=== PATIENT | female | born 2000 | race Caucasian/White ===

== ENCOUNTER 2021-01-06 21:10 | Inpatient (IN) | payer MEDICAID, OTHER ==
[~2021-01-06] VITALS: Ht 154.9 cm; Wt 44.6 kg
[2021-01-06 22:26] LABS: BASOPHILS % (AUTO) 0.4 % (0.0-2.0); EOSINOPHILS % (AUTO) 0.3 % (1.0-6.0); HEMATOCRIT 39.3 % (36-46); HEMOGLOBIN 13.2 g/dL (12.0-16.0); LYMPHOCYTES # (AUTO) 1.9 K/uL (1.0-4.8); LYMPHOCYTES % (AUTO) 24.3 % (22.0-44.0); MEAN CORPUSCULAR HEMOGLOBIN 29.6 pg (26.0-34.0); MEAN CORPUSCULAR HGB CONC 33.5 G/dL (31.0-37.0); MEAN CORPUSCULAR VOLUME 88 fL (80-100); MONOCYTES # (AUTO) 0.7 K/uL (0.1-1.0); MONOCYTES % (AUTO) 8.8 % (2.0-9.0); NEUTROPHILS # (AUTO) 5.3 K/uL (1.8-7.7); NEUTROPHILS % (AUTO) 66.2 % (40.0-70.0); PLATELET COUNT (AUTO) 195 K/uL (150-450); RED BLOOD CELL COUNT(AUTO) 4.45 MIL/uL (4.00-5.20); RED CELL DISTRIBUTION WIDTH 13.5 % (11.5-14.5)
[2021-01-06 22:33] LABS: CALCIUM, TOTAL 8.9 mg/dL (8.8-10.5); CARBON DIOXIDE 21 mmol/L (22-29); GLOMERULAR FILTR. RATE CALC > 60 mL/min (>60); GLUCOSE,RANDOM 87 mg/dL (70-110); UREA NITROGEN, BLOOD 8 mg/dL (7-18)
[2021-01-06 22:44] LABS: ALANINE AMINOTRANSFERASE 23 U/L (12-78); ALBUMIN 3.9 g/dL (3.4-5.0); ALKALINE PHOSPHATASE 77 U/L (46-116); ANION GAP 14 mmol/L (8-16); ASPARTATE AMINOTRANSFERASE 24 U/L (15-37); BILIRUBIN,TOTAL 0.6 mg/dL (0.1-1.0); CHLORIDE 107 mmol/L (98-107); HCG,QUANTITATIVE < 1 mIU/mL (0-6); POTASSIUM 3.3 mmol/L (3.5-5.1); SODIUM SERUM 142 mmol/L (136-145); TOTAL PROTEIN, SERUM 7.6 g/dL (6.4-8.2)
[2021-01-06] MEDS ORDERED: ACETAMINOPHEN 500 MG TABLET PO ONE (22:45)
[2021-01-06 23:23] LABS: COVID AG,FIA SOURCE NASOPHARYNGEAL
[2021-01-06] MEDS ORDERED: ZOLPIDEM TARTRATE 10 MG TABLET PO PRN (23:30)
[2021-01-06] MEDS ORDERED: POTASSIUM CHLORIDE 20 MEQ ER TABLET PO ONE (23:30)
[2021-01-06] MEDS ORDERED: OLANZapine 5 MG RAPDIS TABLET PO PRN (23:30)
[2021-01-07] MEDS ORDERED: IBUPROFEN 600 MG TABLET PO ONE (01:00)
[2021-01-07 01:29] LABS: APPEARANCE,URINE CLOUDY (CLEAR); BILIRUBIN,URINE NEGATIVE (NEGATIVE); GLUCOSE, URINE (UA) NEGATIVE (NEGATIVE); KETONES,URINE TRACE mg/dL (NEGATIVE); LEUKOCYTE ESTERASE ,URINE NEGATIVE (NEGATIVE); NITRATE,URINE NEGATIVE (NEGATIVE); OCCULT BLOOD,URINE NEGATIVE (NEGATIVE); PH,URINE 5.5 (5.0-8.0); PROTEIN,URINE NEGATIVE (NEGATIVE); UROBILINOGEN,URINE 0.2 mg/dL (<=1.0)
[2021-01-07 01:31] LABS: AMPHET/METH SCREEN,URINE NEGATIVE (NEGATIVE); BARBITURATE SCREEN, URINE NEGATIVE (NEGATIVE); BENZODIAZEPINES SCREEN,URINE NEGATIVE (NEGATIVE); CANNABINOID SCREEN,URINE POSITIVE (NEGATIVE); COCAINE SCREEN,URINE NEGATIVE (NEGATIVE); METHADONE SCREEN, URINE NEGATIVE (NEGATIVE); OPIATE SCREEN,URINE NEGATIVE (NEGATIVE)
[2021-01-07 01:34] LABS: PHENCYCLIDINE SCREEN,URINE NEGATIVE (NEGATIVE)
[2021-01-07 01:44] LABS: AMORPHOUS SEDIMENT,UR Few /LPF (None Seen); BACTERIA,URINE Few /HPF (None Seen); MUCUS,URINE Few LPF (None Seen); RBC,URINE 0-2 /HPF (0-2); SQUAMOUS EPITHELIAL CELL,UR Few /LPF (None Seen); WBC,URINE 0-2 /HPF (0-5)
[2021-01-07 03:05] LABS: CHOL/HDL RATIO 3.2 (3.9-5.7); CHOLESTEROL 145 mg/dL (131-200); HDL CHOLESTEROL 45 mg/dL (40-60); LDL CHOL (CALC.) 80 mg/dL (0-130); TRIGLYCERIDES 101 mg/dL (15-150)
[2021-01-07 04:22] VITALS: BP 122/69
[2021-01-07] MEDS: LORazepam 2 MG TABLET PO PRN (04:24)
[2021-01-07 08:16] VITALS: BP 110/69
[2021-01-07] MEDS ORDERED: MAGNESIUM HYDROXIDE SUSPENSION 30 ML UDCUP PO PRN (11:00)
[2021-01-07] MEDS ORDERED: OLANZapine 5 MG RAPDIS TABLET PO PRN (11:00)
[2021-01-07] MEDS ORDERED: TUBERCULIN, PURIFIED PROTEIN DERIVATIVE 5 TU/0.1 ML SYRINGE ID ONE (11:00)
[2021-01-07] MEDS ORDERED: HydrOXYzine PAMOATE 50 MG CAPSULE PO PRN (11:00)
[2021-01-07] MEDS ORDERED: GuaiFENesin/D-METHORPHAN [SUGAR-FREE] 200-20MG/10 ML SYRUP UDCUP PO PRN (11:00)
[2021-01-07] MEDS ORDERED: ZOLPIDEM TARTRATE 10 MG TABLET PO PRN (11:00)
[2021-01-07] MEDS ORDERED: LOPERAMIDE HCL 2 MG CAPSULE PO PRN (11:00)
[2021-01-07] MEDS ORDERED: PROMETHAZINE HCL 25 MG TABLET PO PRN (11:00)
[2021-01-07] MEDS ORDERED: LORazepam 2 MG TABLET PO PRN (11:00)
[2021-01-07] MEDS ORDERED: MAG HYDROX/AL HYDROX/SIMETH ES 30 ML SUSPENSION UDCUP PO PRN (11:00)
[2021-01-07] MEDS: ACETAMINOPHEN 325 MG TABLET PO PRN (12:50)
[2021-01-07] MEDS ORDERED: LURASIDONE HCL 20 MG TABLET PO PRN (15:30)
[2021-01-07 16:28] VITALS: BP 110/78
[2021-01-07] MEDS: LURASIDONE HCL 20 MG TABLET PO SCH (17:50)
[2021-01-07] MEDS: THIAMINE 100 MG TABLET PO SCH (17:50)
[2021-01-07] MEDS ORDERED: OLANZapine 5 MG RAPDIS TABLET PO SCH (21:00)
[2021-01-07] MEDS: MELATONIN 5 MG TABLET PO SCH (21:18)
[2021-01-08] MEDS ORDERED: POTASSIUM CHLORIDE 20 MEQ ER TABLET PO ONE
[2021-01-08 01:30] VITALS: BP 104/63
[2021-01-08 08:43] VITALS: BP 118/72
[2021-01-08] MEDS ORDERED: FLUoxetine HCL 20 MG CAPSULE PO SCH (09:00)
[2021-01-08] MEDS: OMEGA-3/DHA/EPA/FISH OIL 1,000 MG CAPSULE PO SCH (09:06)
[2021-01-08] MEDS: NALTREXONE HCL 50 MG TABLET PO SCH (09:06)
[2021-01-08] MEDS: THIAMINE 100 MG TABLET PO SCH ×2 (09:06→16:59)
[2021-01-08] MEDS: FOLIC ACID 1 MG TABLET PO SCH (09:07)
[2021-01-08] MEDS: MULTIVITAMINS WITH MINERALS, THERAPEUTIC TABLET PO SCH (09:07)
[2021-01-08] MEDS: LORazepam 2 MG TABLET PO PRN ×2 (09:07→13:15)
[2021-01-08] MEDS: ACETAMINOPHEN 325 MG TABLET PO PRN (09:08)
[2021-01-08 09:24] LABS: HEMOGLOBIN A1C 5.1 % (3.8-5.6)
[2021-01-08 10:35] LABS: ANION GAP 8 mmol/L (8-16); CALCIUM, TOTAL 9.2 mg/dL (8.8-10.5); CARBON DIOXIDE 25 mmol/L (22-29); CHLORIDE 105 mmol/L (98-107); CHOL/HDL RATIO 2.9 (3.9-5.7); CHOLESTEROL 145 mg/dL (131-200); CREATININE 0.72 mg/dL (0.60-1.30); FREE T4 (FREE THYROXINE) 1.29 ng/dL (0.76-1.46); GLOMERULAR FILTR. RATE CALC > 60 mL/min (>60); GLUCOSE,RANDOM 75 mg/dL (70-110); HDL CHOLESTEROL 50 mg/dL (40-60); LDL CHOL (CALC.) 80 mg/dL (0-130); POTASSIUM 3.7 mmol/L (3.5-5.1); SODIUM SERUM 138 mmol/L (136-145); THYROID STIMULATING HORMONE 1.23 uIU/mL (0.36-3.74); TRIGLYCERIDES 76 mg/dL (15-150); UREA NITROGEN, BLOOD 10 mg/dL (7-18)
[2021-01-08 16:35] VITALS: BP 110/83
[2021-01-08] MEDS: LURASIDONE HCL 20 MG TABLET PO SCH (16:59)
[2021-01-08] MEDS ORDERED: MELA5TAB3 PO (17:16)
[2021-01-08] MEDS ORDERED: NALT50TA PO (17:16)
[2021-01-08] MEDS ORDERED: OMEG-135 PO (17:16)
[2021-01-08] MEDS ORDERED: LURA20TA PO (17:16)
[2021-01-08] MEDS: MELATONIN 5 MG TABLET PO SCH (20:16)
[2021-01-09 02:10] VITALS: BP 116/70
[2021-01-09 03:42] VITALS: BP 114/65
[2021-01-09] MEDS: ACETAMINOPHEN 325 MG TABLET PO PRN (03:52)
[2021-01-09 08:41] VITALS: BP 128/61
[2021-01-09] MEDS: NALTREXONE HCL 50 MG TABLET PO SCH (09:00)
[2021-01-09] MEDS: THIAMINE 100 MG TABLET PO SCH (09:00)
[2021-01-09] MEDS: FOLIC ACID 1 MG TABLET PO SCH (09:00)
[2021-01-09] MEDS: OMEGA-3/DHA/EPA/FISH OIL 1,000 MG CAPSULE PO SCH (09:00)
[2021-01-09] MEDS: MULTIVITAMINS WITH MINERALS, THERAPEUTIC TABLET PO SCH (09:00)
[2021-01-09] MEDS ORDERED: LURASIDONE HCL 40 MG TABLET PO SCH (17:00)
== END 2021-01-09 09:30 | disposition home or self-care (01) | DRG 753 ==
LOC: EMS 21:13 → B2S 23:30
PROVIDERS: ADMIT Psychiatry & Neurology Psychiatry; ATTEND Psychiatry & Neurology Psychiatry
DX: F31.9 Bipolar disorder, unspecified (principal); R45.851 Suicidal ideations; G43.909 Migraine, unspecified, not intractable, without status migrainosus; D64.9 Anemia, unspecified; F41.9 Anxiety disorder, unspecified; E87.6 Hypokalemia; Z20.822 Contact with and (suspected) exposure to COVID-19
CPT/HCPCS: 80048; 80053; 80061; 80074; 81001; 83036; 84439; 84443; 84702; 85025; 86592; 99285; A9575; G0480